=== PATIENT | female | born 1945 | race Caucasian/White ===

== ENCOUNTER 2023-08-25 18:23 | Emergency (ER) | payer MEDICARE, SELFPAY ==
[2023-08-25] VITALS (20 sets, daily range): BP systolic 126–167; BP diastolic 59–81; PULSE 62–84; RESP 13–20; TEMP 36.2; O2SAT 77–99
--- NOTE | 2023-08-25 18:56 | ED.GENADUL_ITS ---
Discharge Plan Disposition Patient Disposition: Home Condition: Improving Discharge Details Clinical Impression: Acute UTI Primary Care Provider: Beena Abbott ED Provider: Chavez Call Home Meds and New Rx's Prescriptions: New ciprofloxacin HCl 250 mg tablet 250 mg PO BID 7 Days Qty: 14 0RF Discharge Instructions Instructions: Urinary Tract Infection in Women (ED) Additional Instructions: Please follow-up with primary care physician. Take medications as prescribed. Return to the emergency department for any worsening symptom Medical Decision Making 77-year-old female history of Alzheimer's dementia, depression with suicidal tendency on Abilify, left facial ros spasm, chronic debility, largely bedridden over the last several months to years, moved up here from [place] with to be closer to family, has [facility] [employer] home health aide and physical therapy services, decreased p.o. intake over the last week decreased energy, afebrile nontoxic however does appear dry with dry oral mucosa and poor skin turgor, consider likely dehydration versus UTI versus viral illness versus electrolyte abnormality lower suspicion for intracranial intra-abdominal process. Screening labs fluids urinalysis close reassess 20: 17 evidence of UTI. Labs and imaging largely unremarkable. Patient resting comfortably no acute distress. Appears improved after hydration. Will dose ciprofloxacin here in department, will send prescription to pharmacy HPI General Date/Time Provider Initiated Documentation: 08/25/23 18:39 . HPI Narrative: 77-year-old female history of Alzheimer's dementia, depression with suicidal tendencies on Abilify, history of left hemifacial spasms, presents brought in by for evaluation of decreased p.o. intake over the last week, recently moved up from [place] to be closer to family is living with adult children has occupational therapy physical therapy and home health aide once a week. No recent falls no recent fevers no recent injuries. Patient has been mostly bedridden over the last several months to years sleeps most of the day Related Data Home Medications Medication Instructions Recorded Confirmed ciprofloxacin HCl 250 mg tablet 250 mg PO BID 7 days #14 tabs 08/25/23 Previous Rx's Medication Instructions Recorded ciprofloxacin HCl 250 mg tablet 250 mg PO BID 7 days #14 tabs 08/25/23 Allergies Allergy/AdvReac Type Severity Reaction Status Date / Time acetaminophen Allergy Unknown Unverified 08/25/23 18:35 [From Darvocet-N] cefadroxil [From Duricef] Allergy Unknown Unverified 08/25/23 18:35 cephalexin Allergy Unknown Unverified 08/25/23 18:35 minocycline Allergy Unknown Unverified 08/25/23 18:35 propoxyphene Allergy Unknown Unverified 08/25/23 18:35 [facility] General Stated Complaint: GenMedical DIANDRA: 3 Review of Systems Narrative: Review of Systems Constitutional: Decreased energy, decreased p.o. and Eyes: negative ENT: negative Cardiovascular: negative Respiratory: negative Gastrointestinal: negative : negative Musculoskeletal: negative Skin: negative Neurologic: negative Psych: negative PFSH All Active Problems (Updated 08/25/23 @ 20:18 by Chavez Call MD) Acute UTI (Acute) Social History Smoking/Tobacco Use Status: Former Tobacco Use Smoking risk assessment performed?: Yes Substance use type: does not use Housing: house Do you feel safe at home: Yes Do you feel safe in your relationship?: Yes Exam Narrative Exam Narrative: Physical Examination General: alert, awake, cooperative, resting comfortably, no acute distress HEENT: normocephalic, atraumatic; PERRL, EOM intact, conjunctiva normal; no nasal discharge; drying of oral mucosa Neck: supple, trachea midline; full ROM Chest: normal to inspection Respiratory: normal respiratory effort, speaking in full sentences, clear to auscultation, no wheezing, rales or rhonchi Cardiac: regular rate, regular rhythm, S1S2 intact, no murmurs rubs or gallops GI: abdomen soft, non-tender, non-distended; no palpable mass or hepatosplenomegaly Skin: no lesions, rashes or trauma appreciated; poor skin turgor Neuro: AAOx3, left facial droop involving brow eyelid and lower face; 5 out of 5 strength upper and lower extremities Extremities: No edema no trauma Psych: Appropriate mood and affect Course Vital Signs Vital signs: Vital Signs Temperature 36.2 C L 08/25/23 18:30 Pulse 67 08/25/23 18:30 Respiratory Rate 18 08/25/23 18:30 Blood Pressure 138/76 08/25/23 18:30 Pulse Oximetry 95 08/25/23 18:30 Temperature 36.2 C L 08/25/23 18:30 Temperature Source Temporal Artery Scan 08/25/23 18:30 Pulse 67 08/25/23 18:30 Respiratory Rate 18 08/25/23 18:30 Blood Pressure 138/76 08/25/23 18:30 Blood Pressure Position Sitting 08/25/23 18:30 Pulse Oximetry 95 08/25/23 18:30 Oxygen Delivery Method Room Air 08/25/23 18:30 Oxygen Flow Rate 0 08/25/23 18:30
[2023-08-25] MEDS: Normal Saline 1,000 ML 1000 ML IV (19:05)
[2023-08-25 19:14] LABS: Abs Immature Grans 0.02 10^3/uL (0.0-0.06); Absolute Basophil Count 0.03 10^3/uL (0.0-0.2); Absolute Eosinophil Count 0.03 10^3/uL (0.0-0.7); Absolute Monocyte Count 1.04 10^3/uL (0.1-0.8); Absolute Neutrophil Count 6.96 10^3/uL (1.2-6.7); Basophils % 0.3; Eosinophils % 0.3; HCT 36.9 % (36.0-46.0); Immature Grans % 0.2; Lymphocytes % 12.9; MCH 30.4 pg (27.0-33.0); MCHC 32.5 % (32.0-36.0); MCV 93 fL (80-95); MPV 10.5 fL (8.0-11.0); Monocytes % 11.2; Neutrophils % 75.1; Platelet Count 188 10^3/uL (130-400); RBC 3.95 10^6/uL (3.93-5.22); RDW-SD 48.4 fL; WBC 9.28 10^3/uL (4.4-10.8)
[2023-08-25 19:44] LABS: ALT 26 U/L (14-59); AST 32 U/L (15-37); Albumin 2.7 g/dL (3.4-5.0); Alkaline Phosphatase 91 U/L (46-116); Anion Gap 4.9 mmol/L (3-11); BUN 26 mg/dL (7-18); Bilirubin, Total 0.8 mg/dL (0.2-1.0); CO2 32.1 mmol/L (21.0-32.0); CREATININE 0.8 mg/dL (0.55-1.02); Calcium 10.9 mg/dL (8.5-10.1); Chloride 103 mmol/L (98-107); Estimated GFR 75.84 (mL/min/1.73m2); Glucose 106 mg/dL (74-106); Magnesium 1.9 mg/dL (1.8-2.4); Potassium 3.3 mmol/L (3.5-5.1); Sodium 140 mmol/L (136-145); TSH (W/Ref FT4) 1.93 uIU/mL (0.36-3.74); Total Protein 7.2 g/dL (6.4-8.2)
[2023-08-25 19:47] LABS: Bilirubin Negative (Negative); Blood Moderate (Negative); Clarity Sl Cloudy (Clear); Glucose Negative (Negative); Ketones 15 mg/dL (Negative); Leukocyte Esterase Trace (Negative); Nitrite Positive (Negative); Specific Gravity 1.025 (1.005-1.025)
[2023-08-25 19:56] LABS: Bacteria Many HPF (Negative); C & S Indicated? Yes; Casts Negative LPF (Negative); Crystals Negative HPF (Negative); Epithelial Cells Rare HPF (Negative); Mucus Negative (Negative)
--- NOTE | 2023-08-25 19:58 | DI.RAD_ITS ---
Exam(s) XR CHEST 2V PA LATERAL EXAM: XR CHEST 2V PA LATERAL CLINICAL HISTORY: decreased energy TECHNIQUE: 2D digital imaging was performed. COMPARISON: No exams were available for comparison FINDINGS: Leads overlie the chest. HEART: Normal size. Aorta: Not dilated. PULMONARY VASCULATURE: Normal. LUNGS: Clear. PLEURAL SPACE: No pleural effusion or pneumothorax. BONE:Fixation plate in right clavicle. IMPRESSION: No acute abnormality. DATA REPOSITORY: RADIATION DOSE DELIVERED:
[2023-08-25 20:02] LABS: COVID-19 PCR Negative (Negative); Influenza A PCR Negative (Negative); Influenza B PCR Negative (Negative); RSV PCR Negative (Negative)
--- NOTE | 2023-08-25 20:07 | DI.VRAD_ITS ---
PROCEDURE INFORMATION: Exam: XR Chest Exam date and time: 08/25/2023 7:58 PM Age: 77 years old Clinical indication: Other: Decreased energy TECHNIQUE: Imaging protocol: Radiologic exam of the chest. Views: 2 views. COMPARISON: No relevant prior studies available. FINDINGS: Lungs: Unremarkable. No consolidation. Pleural spaces: Unremarkable. No pleural effusion. No pneumothorax. Heart/Mediastinum: Unremarkable. No cardiomegaly. Bones/joints: Orthopedic plate and screw device in the right clavicle. IMPRESSION: No acute disease Dictated and Authenticated by: Delon Hayes MD. Ordering:AMINTA Byrne MD
[2023-08-25 20:10] LABS: Source Nasopharynx
[2023-08-25] MEDS: Ciprofloxacin 250 MG TAB PO (20:21)
== END 2023-08-25 20:36 | disposition home or self-care (01) ==
PROVIDERS: Emergency Provider Emergency Medicine; PCP Nurse Practitioner
DX: N39.0 Urinary tract infection, site not specified (principal)
CPT/HCPCS: 80053; 87077; 87637; 96360; 99284; 71046; 81003; 81015; 83735; 84443; 85025; 87086; 87186